=== PATIENT | female | born 1940 | race Caucasian/White ===

== ENCOUNTER → 2016-05-20 | Outpatient (CLI) | payer MEDICARE, OTHER ==
[~2016-05-20] MED LIST: CALC1CAP22 PO; ESTR1PAT44 TD; FISH1CAP29 PO; LORA-358 PO; MULT-806 PO; [UNRECOGNIZED DRUG - CODE] PO
[2016-05-20 15:08] LABS: BASOPHILS % (AUTO) 0.2 % (0-2); EOSINOPHILS # (AUTO) 0.1 T/MM3 (0-0.5); EOSINOPHILS % (AUTO) 2.2 % (0-4); HCT - HEMATOCRIT 45.4 % (36-46); HGB - HEMOGLOBIN 14.9 GM/DL (12-16); IMMATURE GRANULOCYTE # (AUTO) 0.01 T/MM3 (0.00-0.03); IMMATURE GRANULOCYTE % (AUTO) 0.2 % (0.0-0.5); LYMPHOCYTES # (AUTO) 1.5 T/MM3 (1-4.8); LYMPHOCYTES % (AUTO) 25.3 % (23-45); MEAN CORPUSCULAR HGB 31.4 UUG (26-34); MEAN CORPUSCULAR HGB CONC(MCHC 32.8 GM/DL (31-37); MEAN CORPUSCULAR VOLUME 95.6 UM3 (80-100); MEAN PLATELET VOLUME 10.5 UM3 (9.4-12.4); MONOCYTES # (AUTO) 0.5 T/MM3 (0-0.8); MONOCYTES % (AUTO) 8.2 % (0-9.0); NEUTROPHILS #(AUTO)-ABSOLUTE 3.8 T/MM3 (1.8-7.7); NEUTROPHILS % (AUTO) 63.9 % (33-66); RED BLOOD COUNT 4.75 M/MM3 (4.00-5.20)
[2016-05-20 15:16] LABS: ALBUMIN 4.3 G/DL (3.5-5.0); ALBUMIN/GLOBULIN RATIO 1.5 RATIO (1.1-2.2); ALKALINE PHOSPHATASE 48 U/L (38-126); ALT (SGPT) 29 U/L (9-52); ANION GAP 9 MEQ/L (5-15); AST (SGOT) 23 U/L (14-36); BUN/CREATININE RATIO 27 RATIO (6-26); CALCIUM 9.7 MG/DL (8.4-10.2); CHLORIDE 100 MEQ/L (98-107); CO2 - CARBON DIOXIDE 32 MEQ/L (22-30); CREATININE 0.6 MG/DL (0.7-1.2); GLOMERULAR FILTRATION RATE 97; GLUCOSE 86 MG/DL (65-110); LDH 397 U/L (313-618); MAGNESIUM 2.4 MG/DL (1.6-2.3); POTASSIUM 4.6 MEQ/L (3.6-5); SODIUM 141 MEQ/L (134-144); TOTAL PROTEIN 7.2 G/DL (6.3-8.2)
== END ==
LOC: LAB 14:29
PROVIDERS: ATTEND Internal Medicine Hematology & Oncology
DX: C50.412 Malignant neoplasm of upper-outer quadrant of left female breast (principal)
CPT/HCPCS: 36415; 80053; 83615; 83735; 85025

== ENCOUNTER → 2016-05-26 | Outpatient (CLI) | payer MEDICARE, OTHER ==
[~2016-05-26] MED LIST changes: +GADOBUTROL 10mMol/10ml INJECTION IV ONE; +SALINE FLUSH 10ml SYRINGE ONE
--- NOTE | 2016-05-26 14:37 | DI ---
EXAM: MRI CERVICAL SPINE W/WO CONTRA LOCATION OF DICTATION: [place] HISTORY: ITS.REASON: R52 PAIN; M54.2 CERVICALGIA; M53.82 Other specified dorsopathies, COMPARISON: No prior studies available for comparison. TECHNIQUE: Multiplanar, multisequence, cervical spine protocol MR imaging with contrast of the spine was acquired. FINDINGS: There is preservation there is slight reversal of normal cervical lordosis centered at the C5 level. There is no evidence for subluxation. No acute fractures are demonstrated. Normal signal is present throughout the vertebral bodies. The foramen magnum, subarachnoid space, and cervical spinal cord demonstrate no significant abnormality. Multilevel degenerative changes are present as described below. The prevertebral and paraspinal soft tissues are without identified abnormality. No abnormal enhancement is identified. Segmental analysis: At the C2-C3 level there is no significant spinal canal or foraminal compromise. At the C3-C4 level there is no significant spinal canal or foraminal compromise. At the C4-C5 level there is no significant spinal canal or foraminal compromise. At the C5-C6 level there is posterior disc ossify complex and facet arthropathy. There is moderate left lateral recess and neuroforaminal stenosis. There is mild central spinal and right neuroforaminal stenosis. At the C6-C7 level there is posterior disc osteophyte complex. There is mild left neuroforaminal and central spinal stenosis. At the C7-T1 level there is no significant spinal canal or foraminal compromise. IMPRESSION: 1. Mild reversal of normal cervical lordosis centered at the C5 level. No evidence for subluxation or acute fracture. 2. Multilevel degenerative disease and facet arthropathy. 3. At the C5-C6 level there is moderate left lateral recess and neuroforaminal stenosis. .
== END ==
LOC: IMA 12:48
PROVIDERS: ATTEND Internal Medicine Hematology & Oncology
DX: M48.02 Spinal stenosis, cervical region (principal); M25.78 Osteophyte, vertebrae; M53.82 Other specified dorsopathies, cervical region; M54.2 Cervicalgia
CPT/HCPCS: 72156; A9585

== ENCOUNTER → 2016-06-18 | Outpatient (CLI) | payer MEDICARE, OTHER ==
[~2016-06-18] MED LIST changes: -GADOBUTROL 10mMol/10ml INJECTION IV ONE; -SALINE FLUSH 10ml SYRINGE ONE
[2016-06-18 11:10] LABS: BASOPHILS % (AUTO) 0.2 % (0-2); EOSINOPHILS # (AUTO) 0.1 T/MM3 (0-0.5); EOSINOPHILS % (AUTO) 1.4 % (0-4); HCT - HEMATOCRIT 48.4 % (36-46); HGB - HEMOGLOBIN 16.2 GM/DL (12-16); IMMATURE GRANULOCYTE # (AUTO) 0.01 T/MM3 (0.00-0.03); IMMATURE GRANULOCYTE % (AUTO) 0.2 % (0.0-0.5); LYMPHOCYTES # (AUTO) 1.3 T/MM3 (1-4.8); LYMPHOCYTES % (AUTO) 26.7 % (23-45); MEAN CORPUSCULAR HGB 32.1 UUG (26-34); MEAN CORPUSCULAR HGB CONC(MCHC 33.5 GM/DL (31-37); MEAN CORPUSCULAR VOLUME 95.8 UM3 (80-100); MONOCYTES # (AUTO) 0.4 T/MM3 (0-0.8); MONOCYTES % (AUTO) 8.6 % (0-9.0); NEUTROPHILS #(AUTO)-ABSOLUTE 3.1 T/MM3 (1.8-7.7); NEUTROPHILS % (AUTO) 62.9 % (33-66); RED BLOOD COUNT 5.05 M/MM3 (4.00-5.20); WBC - WHITE BLOOD COUNT 4.9 T/MM3 (4.5-11.0)
[2016-06-18 11:23] LABS: ANION GAP 12 MEQ/L (5-15); BUN/CREATININE RATIO 16 RATIO (6-26); CHLORIDE 98 MEQ/L (98-107); CO2 - CARBON DIOXIDE 32 MEQ/L (22-30); CREATININE 0.7 MG/DL (0.7-1.2); GLOMERULAR FILTRATION RATE 81; GLUCOSE 87 MG/DL (65-110); POTASSIUM 4.2 MEQ/L (3.6-5); SODIUM 142 MEQ/L (134-144)
[2016-06-18 11:24] LABS: ALBUMIN 4.6 G/DL (3.5-5.0); ALBUMIN/GLOBULIN RATIO 1.8 RATIO (1.1-2.2); ALKALINE PHOSPHATASE 60 U/L (38-126); ALT (SGPT) 31 U/L (9-52); AST (SGOT) 26 U/L (14-36); CALCIUM 10.1 MG/DL (8.4-10.2); LDH 398 U/L (313-618); MAGNESIUM 2.3 MG/DL (1.6-2.3); TOTAL PROTEIN 7.2 G/DL (6.3-8.2)
[2016-06-18 12:17] LABS: CA 27-29 CALCULATED 21.63 U/ML (0-37.7)
== END ==
LOC: LAB 10:49
PROVIDERS: ATTEND Internal Medicine Hematology & Oncology
DX: C50.412 Malignant neoplasm of upper-outer quadrant of left female breast (principal); E55.9 Vitamin D deficiency, unspecified
CPT/HCPCS: 36415; 80053; 82306; 83615; 83735; 85025; 86300